=== PATIENT | female | born 1995 | race Two or more races ===

== ENCOUNTER 2024-11-15 10:13 | Outpatient (CLI) | payer OTHER | END 2024-11-15 10:14 | disposition home or self-care (01) | LOC: PRENATAL 10:13 | PROVIDERS: ATTEND Obstetrics & Gynecology Maternal & Fetal Medicine | DX: O36.80X0 Pregnancy with inconclusive fetal viability, not applicable or unspecified (principal); Z36.82 Encounter for antenatal screening for nuchal translucency; Z14.8 Genetic carrier of other disease; Z3A.13 13 weeks gestation of pregnancy ==

== ENCOUNTER → 2025-01-01 12:15 | Outpatient (CLI) | payer OTHER | END | disposition home or self-care (01) | LOC: PRENATAL 12:15 | PROVIDERS: ATTEND Obstetrics & Gynecology Maternal & Fetal Medicine | DX: O44.00 Complete placenta previa NOS or without hemorrhage, unspecified trimester (principal); Z14.8 Genetic carrier of other disease; Z3A.19 19 weeks gestation of pregnancy ==

== ENCOUNTER 2025-03-26 13:06 | Outpatient (CLI) | payer OTHER | END 2025-03-26 13:07 | disposition home or self-care (01) | LOC: PRENATAL 13:06 | PROVIDERS: ATTEND Obstetrics & Gynecology Maternal & Fetal Medicine | DX: O26.849 Uterine size-date discrepancy, unspecified trimester (principal); O36.8130 Decreased fetal movements, third trimester, not applicable or unspecified; Z14.8 Genetic carrier of other disease; Z3A.31 31 weeks gestation of pregnancy ==